=== PATIENT | female | born 1940 | race Caucasian/White ===

== ENCOUNTER 2020-08-13 12:03 | Outpatient (CLI) | payer MEDICARE ==
[~2020-08-13] VITALS: Ht 154.9 cm; Wt 62.7 kg
[2020-08-13 12:59] VITALS: BP 135/70; Ht 154.9 cm; Wt 62.7 kg
--- NOTE | 2020-08-13 13:42 | NUR ---
[id number] PATIENT AMBULATED TO OUTPATIENT DEPARTMENT FOR INJECTION, STATES HAS HAD PREVIOUS PROLICA INJECTION. INJECTION GIVEN ORDERED, UNEVENTFUL. PATIENT DISCHARGED AMBULATORY
== END 2020-08-13 13:10 | disposition home or self-care, planned readmission (81) ==
LOC: D.OPS 12:03
PROVIDERS: ATTEND Family Medicine
DX: M81.0 Age-related osteoporosis without current pathological fracture (principal)